=== PATIENT | female | born 2000 | race Hispanic/Latino ===

== ENCOUNTER 2020-07-12 04:47 | Inpatient (IN) | payer OTHER, SELFPAY ==
[2020-07-12 05:19] LABS: #Basophils 0.1 thou/uL (0.0-0.2); #Eosinphils 0.1 thou/uL (0.0-0.7); #Lymphocytes 3.9 thou/uL (1.20-3.40); #Monocytes 0.6 thou/uL (0.11-0.59); #Neutrophils 5.7 thou/uL (1.40-6.50); %Basophils 0.8 % (0.0-1.0); %Eosinophils 0.9 % (0.0-10.0); %Lymphocytes 37.8 % (21.0-51.0); %Monocytes 5.7 % (0.0-10.0); %Neutrophils 54.8 % (42.0-75.0); Hemoglobin 13.8 g/dL (12.0-16.0); Mean Corpuscular HGB CONC 33.4 g/dL (32.0-36.0); Mean Corpuscular Hemoglobin 29.1 pg (27.0-31.0); Platelet Count 283 thou/uL (130-400); Red Blood Cell (RBC) Count 4.73 mill/uL (4.20-5.40); White Blood Cell (WBC) Count 10.4 thou/uL (4.8-10.8)
[2020-07-12 05:22] LABS: BHCG - Serum Negative (NEGATIVE); Pregs Control Background? CLEAR/WHITE (CLR/WHITE); Pregs Control Bar Appear? YES (CONTROL BAR)
[2020-07-12 05:40] LABS: ALT (SGPT) 29 U/L (8-55); AST (SGOT) 36 U/L (5-34); Albumin 4.3 g/dL (3.5-5.0); Alkaline Phosphatase 124 U/L (40-110); Anion Gap 13 mmol/L (10-20); BUN (Urea Nitrogen) 18 mg/dL (7.0-18.7); Bilirubin, Total 0.4 mg/dL (0.2-1.2); Calc. Creatinine Clearance 0 mL/min (70-130); Calcium 8.7 mg/dL (7.8-10.44); Carbon Dioxide 23 mmol/L (22-29); Chloride 107 mmol/L (98-107); Globulin 2.8 g/dL (2.4-3.5); Glucose 113 mg/dL (70-105); Lipase 7 U/L (8-78); Potassium 3.5 mmol/L (3.5-5.1); Protein, Total 7.1 g/dL (6.0-8.3); Sodium 139 mmol/L (136-145)
[2020-07-12 05:58] LABS: Bilirubin Negative (Negative); Blood, Urine 1+ (Negative); Clarity Turbid (Clear); Glucose, Urine (Dipstick) Normal (Negative); Ketone, Urine 10 mg/dL (Negative); Leukocyte 75 Leu/uL (Negative); Nitrite Negative (Negative); Protein, Urine (Dipstick) 20 mg/dL (Neg-Trace); Specific Gravity, Urine 1.033 (1.002-1.036); Urobilinogen Normal mg/dL (Less than 2); pH, Urine 5.5 (5.0-9.0)
[2020-07-12 05:59] LABS: Bacteria/HPF Rare-Few HPF (None Seen)
[2020-07-12] MEDS ORDERED: Morphine 4 MG/ML VIAL ONE (06:22)
[2020-07-12] MEDS ORDERED: Ondansetron PF 4 MG/2 ML Vial ONE ×2 (06:22→14:12)
[2020-07-12] MEDS ORDERED: Piperacillin/Tazobactam 3.375 GM VIAL ONE ×2 (08:04→08:07)
[2020-07-12] MEDS ORDERED: Bisacodyl 10 MG SUPP PR PRN (08:13)
[2020-07-12] MEDS ORDERED: Acetaminophen 325 MG TAB PO PRN (08:13)
[2020-07-12] MEDS ORDERED: Iopamidol-370 76% 500 ML 1 ML ONE (09:31)
[2020-07-12] MEDS: Famotidine/PF 20 mg/2ml Vial SLOW IVP SCH ×2 (09:56→20:33)
[2020-07-12] MEDS: Ketorolac Tromethamine 30 MG/ML VIAL IVP PRN ×2 (09:56→22:42)
[2020-07-12] MEDS: Sodium Chloride 0.9% 1,000 ML IV SCH ×3 (09:57→20:37)
[2020-07-12] MEDS: Morphine 4 MG/ML VIAL SLOW IVP PRN ×2 (11:45→12:52)
[2020-07-12] MEDS ORDERED: Piperacillin/Tazobactam 4.5 GM in Sodium Chloride 0.9% 100 ML IVPB SCH (12:00)
[2020-07-12] MEDS: Ondansetron PF 4 MG/2 ML Vial IVP PRN ×2 (12:52→19:41)
[2020-07-12 12:59] LABS: SARS-CoV-2 NAA Rapid Test Not Detected (NotDetected)
[2020-07-12] MEDS ORDERED: Fentanyl 100 MCG/2 ML VIAL ONE (13:22)
[2020-07-12] MEDS ORDERED: Meperidine HCl/PF 25 MG/ML VIAL ONE (13:22)
[2020-07-12] MEDS ORDERED: Famotidine/PF 20 mg/2ml Vial ONE (13:23)
[2020-07-12] MEDS ORDERED: SUGAMMADEX SODIUM 200 MG/2 ML VIAL ONE (13:23)
[2020-07-12] MEDS ORDERED: Indomethacin 50 MG SUPP ONE (13:52)
[2020-07-12] MEDS ORDERED: Iothalamate Meglumine 60% 50 ML VIAL FS ONE (13:53)
[2020-07-12] MEDS ORDERED: PHENYLEPHRINE-NS 100 MCG/ML 10 ML SYRINGE ONE (14:12)
[2020-07-12] MEDS ORDERED: PROPOFOL 200 MG/20 ML VIAL ONE (14:12)
[2020-07-12] MEDS ORDERED: Ketorolac Tromethamine 30 MG/ML VIAL ONE (14:12)
[2020-07-12] MEDS ORDERED: Rocuronium Bromide 10 MG/ML (10ML VIAL) ONE (14:12)
[2020-07-12] MEDS ORDERED: Metoclopramide HCl 10 MG/2 ML VIAL ONE (14:12)
[2020-07-12] MEDS ORDERED: Lidocaine 1% PF 5 ML VIAL ONE (14:12)
[2020-07-12] MEDS ORDERED: Dexamethasone 20 MG/5 ML VIAL ONE (14:12)
[2020-07-12] MEDS ORDERED: Ondansetron HCl/PF 4 MG/2 ML Vial IVP PRN (15:15)
[2020-07-12] MEDS ORDERED: Promethazine HCl 25 MG/ML VIAL SLOW IVP PRN (15:15)
[2020-07-12] MEDS ORDERED: Promethazine HCl 25 MG/ML VIAL IM PRN (15:15)
[2020-07-12] MEDS ORDERED: Meperidine HCl/PF 25 MG/ML VIAL SLOW IVP PRN (15:15)
[2020-07-12] MEDS: Piperacillin/Tazobactam 4.5 GM in Sodium Chloride 0.9% 100 ML IVPB SCH ×2 (17:39→20:36)
[2020-07-12 20:12] VITALS: BMI 28.3
[2020-07-13] MEDS: Sodium Chloride 0.9% 1,000 ML IV SCH ×5 (00:30→19:06)
[2020-07-13] MEDS: Piperacillin/Tazobactam 4.5 GM in Sodium Chloride 0.9% 100 ML IVPB SCH ×4 (01:51→20:20)
[2020-07-13 05:17] LABS: #Monocytes 0.3 thou/uL (0.11-0.59); #Neutrophils 8.4 thou/uL (1.40-6.50); %Basophils 0.1 % (0.0-1.0); %Eosinophils 0.1 % (0.0-10.0); %Lymphocytes 9.8 % (21.0-51.0); %Monocytes 3.6 % (0.0-10.0); %Neutrophils 86.4 % (42.0-75.0); Hemoglobin 12.8 g/dL (12.0-16.0); Mean Corpuscular HGB CONC 33.7 g/dL (32.0-36.0); Mean Corpuscular Hemoglobin 29.4 pg (27.0-31.0); Mean Corpuscular Volume 87.5 fL (78.0-98.0); Mean Platelet Volume 8.2 fL (7.4-10.4); Platelet Count 264 thou/uL (130-400); Red Blood Cell (RBC) Count 4.34 mill/uL (4.20-5.40); White Blood Cell (WBC) Count 9.7 thou/uL (4.8-10.8)
[2020-07-13 05:39] LABS: ALT (SGPT) 289 U/L (8-55); ALT (SGPT) 299 U/L (8-55); AST (SGOT) 135 U/L (5-34); AST (SGOT) 141 U/L (5-34); Albumin 3.7 g/dL (3.5-5.0); Alkaline Phosphatase 151 U/L (40-110); Alkaline Phosphatase 154 U/L (40-110); Anion Gap 10 mmol/L (10-20); BUN (Urea Nitrogen) 6 mg/dL (7.0-18.7); Bilirubin, Direct 0.4 mg/dL (0.1-0.3); Bilirubin, Total 0.8 mg/dL (0.2-1.2); Bilirubin, Total 0.9 mg/dL (0.2-1.2); Calc. Creatinine Clearance 152 mL/min (70-130); Calcium 7.7 mg/dL (7.8-10.44); Carbon Dioxide 21 mmol/L (22-29); Chloride 111 mmol/L (98-107); Globulin 2.1 g/dL (2.4-3.5); Glucose 118 mg/dL (70-105); Lipase 5 U/L (8-78); Potassium 4.3 mmol/L (3.5-5.1); Protein, Total 5.8 g/dL (6.0-8.3); Protein, Total 6.1 g/dL (6.0-8.3); Sodium 138 mmol/L (136-145)
[2020-07-13] MEDS: Famotidine/PF 20 mg/2ml Vial SLOW IVP SCH ×2 (08:01→20:20)
[2020-07-13] MEDS ORDERED: Midazolam HCl 2 mg/2 ml Vial ONE (12:24)
[2020-07-13] MEDS ORDERED: Scopolamine 1.5 mg/72 hour Patch ONE (12:24)
[2020-07-13] MEDS ORDERED: Bupivacaine PF 0.5% 30 ML VIAL ONE (12:57)
[2020-07-13] MEDS ORDERED: EPINEPHrine 1 MG/ML AMP ONE (12:57)
[2020-07-13] MEDS ORDERED: Fentanyl 100 MCG/2 ML VIAL ONE ×5 (13:00→15:49)
[2020-07-13] MEDS ORDERED: Famotidine/PF 20 mg/2ml Vial ONE (13:00)
[2020-07-13] MEDS ORDERED: PROPOFOL 200 MG/20 ML VIAL ONE (13:25)
[2020-07-13] MEDS ORDERED: Ondansetron PF 4 MG/2 ML Vial ONE (13:25)
[2020-07-13] MEDS ORDERED: Lidocaine 1% PF 5 ML VIAL ONE (13:25)
[2020-07-13] MEDS ORDERED: Glycopyrrolate 0.2 MG/ML 5 ML SYRINGE ONE (13:25)
[2020-07-13] MEDS ORDERED: Rocuronium Bromide 10 MG/ML (10ML VIAL) ONE (13:25)
[2020-07-13] MEDS ORDERED: Dexamethasone 20 MG/5 ML VIAL ONE (13:25)
[2020-07-13] MEDS ORDERED: PHENYLEPHRINE-NS 100 MCG/ML 10 ML SYRINGE ONE (13:25)
[2020-07-13] MEDS ORDERED: Ketorolac Tromethamine 30 MG/ML VIAL ONE ×2 (13:25→15:15)
[2020-07-13] MEDS ORDERED: HYDROcodone/Acetaminophen 5/325 mg Tablet PO PRN ×2 (15:06)
[2020-07-13] MEDS ORDERED: Ketorolac Tromethamine 30 MG/ML VIAL IVP PRN (15:13)
[2020-07-13] MEDS ORDERED: Promethazine HCl 25 MG/ML VIAL SLOW IVP PRN (15:13)
[2020-07-13] MEDS ORDERED: Promethazine HCl 25 MG/ML VIAL IM PRN (15:13)
[2020-07-13] MEDS ORDERED: Ondansetron HCl/PF 4 MG/2 ML Vial IVP PRN (15:13)
[2020-07-13] MEDS ORDERED: HYDROmorphone 2 MG/ML VIAL SLOW IVP PRN (15:13)
[2020-07-13] MEDS: Morphine 4 MG/ML VIAL SLOW IVP PRN ×2 (17:53→20:19)
[2020-07-14] MEDS: Morphine 4 MG/ML VIAL SLOW IVP PRN ×2 (01:44→05:00)
[2020-07-14] MEDS: Piperacillin/Tazobactam 4.5 GM in Sodium Chloride 0.9% 100 ML IVPB SCH ×2 (01:44→08:39)
[2020-07-14] MEDS: Sodium Chloride 0.9% 1,000 ML IV SCH ×2 (01:45→10:36)
[2020-07-14 06:10] LABS: ALT (SGPT) 207 U/L (8-55); AST (SGOT) 66 U/L (5-34); Albumin 3.4 g/dL (3.5-5.0); Alkaline Phosphatase 121 U/L (40-110); Bilirubin, Direct 0.3 mg/dL (0.1-0.3); Bilirubin, Total 0.7 mg/dL (0.2-1.2); Protein, Total 5.9 g/dL (6.0-8.3)
[2020-07-14] MEDS: Famotidine/PF 20 mg/2ml Vial SLOW IVP SCH (08:39)
[2020-07-14 11:17] VITALS: BP 120/75; TEMP 98.3
== END 2020-07-14 13:15 | disposition home or self-care (01) | DRG 419 ==
LOC: ERS 04:47 → SURG A 07:30 → OBSVTOIN 07:30
PROVIDERS: ADMIT Student in an Organized Health Care Education/Training Program; ATTEND Internal Medicine
PROC: 0FPB8DZ Removal of Intraluminal Device from Hepatobiliary Duct, Via Natural or Artificial Opening Endoscopic (ICD-10-PCS; 2020-07-12)
PROC: 0FC98ZZ Extirpation of Matter from Common Bile Duct, Via Natural or Artificial Opening Endoscopic (ICD-10-PCS; 2020-07-12)
PROC: 0DB68ZX Excision of Stomach, Via Natural or Artificial Opening Endoscopic, Diagnostic (ICD-10-PCS; 2020-07-12)
PROC: 0FT44ZZ Resection of Gallbladder, Percutaneous Endoscopic Approach (ICD-10-PCS; principal; 2020-07-13)
DX: K80.42 Calculus of bile duct with acute cholecystitis without obstruction (principal); R82.71 Bacteriuria; Z20.822 Contact with and (suspected) exposure to COVID-19
CPT/HCPCS: 36415; 74160; 74330; 76705; 80053; 80076; 81001; 83605; 83690; 84703; 85025; 87040; 88304; 88305; 96365; 96375; J0171; J1100; J1610; J1885; J2175; J2250; J2270; J2405; J2543; J2704; J2765; J3010; J3490; Q9961; Q9967; S0020; S0028; U0002

== ENCOUNTER 2024-04-05 10:49 | Outpatient (CLI) | payer BC | END 2024-04-05 10:50 | disposition home or self-care (01) | LOC: BICULT 10:49 | PROVIDERS: ATTEND Nurse Practitioner Family | DX: N63.23 Unspecified lump in the left breast, lower outer quadrant (principal) ==